=== PATIENT | male | born 1940 | race Caucasian/White ===

== ENCOUNTER 2019-07-30 11:55 | Outpatient (CLI) | payer MEDICARE ==
--- NOTE | 2019-07-30 13:35 | MRI ---
MR the lumbar spine without contrast INDICATION: Lumbar radiculopathy with low back pain and severe weakness in both legs COMPARISON: MR the lumbar spine without contrast dated November 18, 2008 TECHNIQUE: Multiplanar multisequence MR images were obtained of lumbar spine without IV contrast. FINDINGS: Bone marrow: Since the comparison examination there is been interval performance of a posterior later al interbody fusion at L5-S1. Bilateral pars defects are again noted at L5. Grade 1 anterolisthesis is stable appearing. Distal spinal cord and conus: Normal. The conus seen to terminate at L1. 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 There is a 1.4 cm superior right renal cyst. Vertebral levels: L5-S1: There is a broad-based pseudobulge with loss of disc space height and grade 1 anterolisthesis inducing severe bilateral neural foraminal narrowing that is stable to the prior exam.. L4-5: There is a broad-based disc osteophyte complex with facet hypertrophy and loss of disc space he ight inducing moderate to severe left and moderate right neural foraminal narrowing which is stable to the prior exam. L3-4: There is a broad-based disc osteophyte complex with facet hypertrophy inducing mild central can al narrowing with moderate bilateral neural foraminal narrowing. This is stable to the prior exam. L2-3: There is a broad-based disc osteophyte complex with facet hypertrophy inducing mild central can al narrowing and mild bilateral neural foraminal narrowing which is stable to the prior exam. L1-L2: There is a broad-based disc bulge with mild facet osteoarthrosis inducing mild bilateral neura l foraminal narrowing which is slightly more pronounced than seen on the prior exam. T12-L1: There is a broad-based bulge without appreciable central canal or neural foraminal narrowing IMPRESSION: 1. Interval posterior lateral interbody fusion of L5-S1. 2. Stable advanced disc degenerative disease and facet osteoarthrosis in addition to grade 1 anteroli sthesis at L5-S1 induces stable severe bilateral neural foraminal narrowing. 3. Stable moderate to severe left and moderate right neural foraminal narrowing at L4-5. 4. Stable moderate bilateral neural foraminal narrowing and mild central canal narrowing at L3-4. 5. Stable mild central canal narrowing and mild bilateral neural foraminal narrowing at L2-3. 6. Stable mild ectasia infrarenal abdominal aorta measuring 2.9 cm. 1.4 cm superior pole right renal cyst.
== END 2019-07-30 11:56 | disposition home or self-care (01) ==
LOC: BICMRI 11:55
PROVIDERS: ATTEND Internal Medicine
DX: M54.16 Radiculopathy, lumbar region (principal); M51.37 Other intervertebral disc degeneration, lumbosacral region; M43.17 Spondylolisthesis, lumbosacral region; M48.07 Spinal stenosis, lumbosacral region; M48.061 Spinal stenosis, lumbar region without neurogenic claudication; I77.811 Abdominal aortic ectasia; N28.1 Cyst of kidney, acquired; M47.817 Spondylosis without myelopathy or radiculopathy, lumbosacral region; Z98.1 Arthrodesis status
CPT/HCPCS: 72148

== ENCOUNTER 2019-11-23 13:21 | Inpatient (IN) | payer MEDICARE, OTHER ==
[2019-11-23 13:34] LABS: #Eosinphils 0.2 thou/uL (0.0-0.7); #Lymphocytes 1.8 thou/uL (1.20-3.40); #Monocytes 0.5 thou/uL (0.11-0.59); #Neutrophils 3.9 thou/uL (1.40-6.50); %Basophils 0.3 % (0.0-1.0); %Eosinophils 2.4 % (0.0-10.0); %Lymphocytes 28.1 % (21.0-51.0); %Monocytes 8.1 % (0.0-10.0); %Neutrophils 61.1 % (42.0-75.0); Hemoglobin 13.4 g/dL (14.0-18.0); Mean Corpuscular HGB CONC 32.3 g/dL (32.0-36.0); Mean Corpuscular Hemoglobin 30.7 pg (27.0-31.0); Mean Corpuscular Volume 95.2 fL (78.0-98.0); Mean Platelet Volume 9.9 fL (7.4-10.4); Platelet Count 185 thou/uL (130-400); RBC Distribution Width 12.4 % (11.5-14.5); Red Blood Cell (RBC) Count 4.37 mill/uL (4.70-6.10); White Blood Cell (WBC) Count 6.4 thou/uL (4.8-10.8)
[2019-11-23 13:40] LABS: PTT 30.3 SEC (22.9-36.1)
--- NOTE | 2019-11-23 13:40 | CT ---
CT BRAIN NONCONTRAST: DATE: 11/23/2019 HISTORY: 79-year-old male with acute stroke symptoms: Dysarthria and altered mental status, confusion Dr. Marin verbally gave this acute stroke alert protocol report to Dr. Dueñas at 1:38 PM 11/23/2019 FINDINGS: There is no evidence of acute intra-axial or extra-axial hemorrhage. There is no midline shift or any other mass effect. There is no extra-axial fluid collection. There is no evidence of obstructive hydrocephalus. Calvarium is intact. IMPRESSION: No acute intracranial findings.
[2019-11-23 13:47] LABS: ALT (SGPT) 15 U/L (8-55); AST (SGOT) 15 U/L (5-34); Albumin 4.4 g/dL (3.4-4.8); Alkaline Phosphatase 89 U/L (40-110); Anion Gap 14 mmol/L (10-20); BUN (Urea Nitrogen) 18 mg/dL (8.4-25.7); Bilirubin, Total 0.4 mg/dL (0.2-1.2); CK (CPK) 206 U/L (30-200); Calc. Creatinine Clearance 0 mL/min (70-130); Calcium 9.7 mg/dL (7.8-10.44); Carbon Dioxide 28 mmol/L (23-31); Chloride 101 mmol/L (98-107); Estimated GFR-MDRD 51; Globulin 2.9 g/dL (2.4-3.5); Glucose 143 mg/dL (83-110); Potassium 4.1 mmol/L (3.5-5.1); Protein, Total 7.3 g/dL (5.8-8.1); Sodium 139 mmol/L (136-145)
[2019-11-23] MEDS ORDERED: niCARdipine 20MG In NaCl 20 MG/200 ML BAG ONE (13:51)
[2019-11-23] MEDS ORDERED: niCARdipine 25 MG in Sodium Chloride 0.9% 250 ML 240 ML IVPB SCH (14:00)
[2019-11-23 14:20] LABS: Bacteria/HPF None Seen HPF (None Seen); Bilirubin Negative (Negative); Blood, Urine Negative (Negative); Clarity Clear (Clear); Glucose, Urine (Dipstick) Normal (Negative); Leukocyte Negative Leu/uL (Negative); Nitrite Negative (Negative); Protein, Urine (Dipstick) 30 mg/dL (Neg-Trace); RBC/HPF 0-3 HPF (0-3); Squamous Epithelial None Seen HPF (0-3); Urobilinogen Normal mg/dL (Less than 2); WBC/HPF None Seen HPF (0-3)
[2019-11-23] MEDS ORDERED: hydrALAZINE 20 MG/ML VIAL SLOW IVP PRN (15:25)
--- NOTE | 2019-11-23 17:15 | CON ---
NEUROLOGY CONSULTATION DATE OF CONSULTATION: 11/23/2019 HISTORY OF PRESENT ILLNESS: Mr. Mackey is a 79-year-old male with a history significant for hypertension, hyperlipidemia, presented with speech deficit. The history is taken from the daughter. According to the daughter, her mother called her that he was not speaking right and so she went over and spoke to him. He had difficulty getting words out and was somewhat confused. She gave his 650 mg of aspirin and then he felt better and she went to her house. Her mother called her within half an hour that his symptoms are back again and she came to the house and found him to have difficulty talking and his words were not making sense. She called EMS and brought him to the emergency room for further evaluation. Head CT was done, which was negative for acute intracranial pathology. The patient does have difficulty talking, otherwise denies any focal weakness, focal paresthesias , nausea, vomiting, headache, chest pain, or abdominal pain. REVIEW OF SYSTEMS: All 14 systems were reviewed and were negative except for pertinent positives and negatives mentioned in the HPI. PAST MEDICAL HISTORY: Hypertension, hyperlipidemia. PAST SURGICAL HISTORY: Not significant. SOCIAL HISTORY: , lives with his . He is the sole caregiver of the who has cancer. Denies illegal drug use. FAMILY HISTORY: Not significant. PHYSICAL EXAMINATION: 148/70 77 18 CARDIOVASCULAR: Regular rate and rhythm. CHEST: Clear. ABDOMEN: Soft. NEUROLOGIC: Mental status: The patient is alert and oriented to person, place , and time. He does have receptive and expressive aphasia. Cranial nerves 2 through 12 intact. Motor: Muscle tone and bulk are normal. Moving all 4 extremities equally and symmetrically. Reflexes 2+ bilaterally. Sensory: Withdraws to pinprick bilaterally. Cerebellar: Intact. Mild right pronator drift. LABORATORY DATA: I reviewed the CT scan, which was unremarkable. ASSESSMENT AND PLAN: Mr. Maikel Mackey is admitted with speech deficit, most likely cerebrovascular accident since he has risk factors. Recommend MRI of the brain to rule out acute intracranial pathology, 2D echo to rule out cardioembolic source, telemetry to monitor for any arrhythmias, and carotid Dopplers to rule out significant stenosis. Check a fasting lipid panel and hemoglobin A1c and TSH. Start aspirin and statin for secondary stroke prevention. Permissive control of blood pressure at this time. Continue home medications. Continue medical management per primary team. Further recommendation depends on the results of the testing. We will continue to follow. Thank you for the consult. Job ID: [id number] MTDD
[2019-11-23 17:30] VITALS: BMI 23.7
[2019-11-23] MEDS: Acetaminophen 325 MG TAB PO PRN (18:15)
[2019-11-23] MEDS ORDERED: Atorvastatin Calcium 40 MG TAB PO SCH (21:00)
[2019-11-23] MEDS: Sodium Chloride 0.9% 1,000 ML IV SCH (22:06)
--- NOTE | 2019-11-23 22:23 | HP ---
CHIEF COMPLAINT: Aphasia. HISTORY OF PRESENT ILLNESS: The patient is a 79-year-old male with a history of low level hypertension not currently requiring medications, as well as diabetes mellitus, who presented via the emergency department. The patient was at home with his , who unfortunately is suffering from a significant sarcoma. The patient has been taking care of her and has been under a great deal of caregiver stress related to that. The patient's also has some mild dementia. The patient's called their daughter this morning indicating that he appeared confused. She talked to him on the phone. He was very clearly having some difficulties. She went to their house and noted he was having what appeared to be some aphasia and possibly some confusion. She gave him 625 mg of aspirin. He seemed to improve. They wanted to call for an ambulance, but he refused because he did not want to do anything that would remove him from the caregiver role for his . Therefore, the daughter went home to resolve a couple of issues that she thought was causing him some additional anxiety and while she was gone, his symptoms recurred and subsequently they called EMS to bring the patient to the hospital. Since he has been here, the patient's daughter reports that he has actually been getting slightly worse at times. The patient did not have a clear onset of symptoms or last known normal given the patient's 's underlying dementia symptoms, and based on the 10 o'clock timeframe, he was just outside the window for tPA, therefore that was not subsequently administered. The patient did have significant elevations of his blood pressure in the ER and was started on some Cardene. Subsequently, his blood pressure has come down what appears to be too much and that has now been discontinued. REVIEW OF SYSTEMS: Cannot be fully obtained given the patient's aphasia and his 's dementia and she is not present as well. PAST MEDICAL HISTORY: Notable for hyperlipidemia, diabetes mellitus, history of AAA, which the daughter believes is only about 3.5 cm. 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 Has significant diabetic related peripheral neuropathy and he generally walks with a cane or a walker. PAST SURGICAL HISTORY: SVT ablation, vasectomy, appendectomy. FAMILY HISTORY: Father of an NE in his early 60s. Mother lived into her 80s. SOCIAL HISTORY: The patient is a nonsmoker, nondrinker, and nondrug user. He is . Still lives with his . Again, he is the primary caregiver to his who is battling sarcoma. He is full code and his daughter would be his surrogate decision maker at this point should that become necessary. CURRENT MEDICATIONS: 1. Aspirin 81 mg daily. 2. Metformin 500 mg b.i.d. 3. Gabapentin 100 mg t.i.d. 4. Simvastatin 20 mg at bedtime. 5. Losartan/hydrochlorothiazide 100/25 one p.o. daily. 6. Centrum Silver 1 p.o. daily. PHYSICAL EXAMINATION: VITAL SIGNS: BP 171/89, numbers initially were 210/124. Subsequently came down to 102 systolic while I was in the room as the Cardene had been turned off, pulse is 83, respirations 18, temperature 98.1, O2 saturation 97% on room air. GENERAL APPEARANCE: Age-appropriate male, no distress. He is awake, alert, pleasant, calm, no distress. HEENT: PERRL. He has no acute lesions. Dentures in place. NECK: Supple and symmetric. There are no carotid bruits. HEART: Regular rate and rhythm without murmurs, gallops, or rubs. LUNGS: Clear to auscultation bilaterally. Good chest wall expansion and air exchange. ABDOMEN: Soft, nontender, and nondistended. Positive bowel sounds. No masses. No organomegaly. EXTREMITIES: No cyanosis, clubbing, or edema. NEUROLOGIC: The patient does have some expressive aphasia. He is able to follow my commands, although apparently there had been times in the ER when he was not able to do so. He cannot recall his daughter's name, does not know place. He is oriented to person. 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 LABORATORY DATA: White count 6.4, hemoglobin 13.4, platelets 185. INR 1.0, PTT 30.3. Sodium 139, potassium 4.1, chloride 101, CO2 of 28, BUN 18, creatinine is 1.35, glucose 143, calcium 9.7, AST 15, ALT 15, CK 206, troponin 0.012. Albumin 4.4. Urinalysis is negative. CT of the brain negative. IMPRESSION AND PLAN: 1. Acute cerebrovascular accident manifest as expressive aphasia and possibly some intermittent receptive aphasia as well. The patient will be admitted to the hospital. We will consult Neurology, PT, OT, Speech Therapy. I anticipate echocardiogram, carotid Dopplers and an MRI of the brain. We will continue with statin high dose and with daily aspirin at 325 mg for now. 2. Diabetes mellitus. Continue with Accu-Cheks and sliding scale for now until we are sure the patient is able to take adequate p.o. and may be able to convert back to the metformin. 3. Hypertension. I am actually unclear now if the patient is taking blood pressure medications routinely or not. We will try to reach out to his PCP to confirm. The daughter indicated that he had taken them in the past, but was unsure that he was continuing with them now. 4. Diabetic neuropathy. Again, we will resume gabapentin. The patient is capable of taking p.o. at some point. Job ID: [id number]
[2019-11-23] MEDS ORDERED: Dextrose 50% Abboject 50 ML SYRINGE SLOW IVP PRN (22:57)
[2019-11-23] MEDS ORDERED: Dextrose 5% in Water 1,000 ML IV PRN (22:57)
[2019-11-23] MEDS ORDERED: HumaLOG 300 UNITS/3 ML VIAL SC PRN ×2 (22:57)
[2019-11-24] MEDS: Acetaminophen 325 MG TAB PO PRN ×2 (04:31→08:54)
--- NOTE | 2019-11-24 06:55 | ULT ---
CAROTID ULTRASOUND: HISTORY: CVA. COMPARISON: None. TECHNIQUE: Multiplanar voss-scale and color Doppler images were obtained in a carotid ultrasound. Spectral meghan sis of the Doppler wave-forms was performed. FINDINGS: No significant plaque is seen in either common or internal carotid artery. The Doppler wave-forms are normal bilaterally. The peak systolic velocity in the right ICA is 67 cm per second. The peak systolic velocity in the right CCA is 83 cm per second. The right ICA/CCA ratio is 0.8. The peak systolic velocity in the left ICA is 47 cm per second. The peak systolic velocity in the left CCA is 90 cm per second. The left ICA/CCA ratio is 0.5 Both vertebral arteries demonstrate antegrade flow without evidence of stenosis. IMPRESSION: No evidence of hemodialysis significant stenosis. POS: EAA
[2019-11-24] MEDS ORDERED: Tamsulosin HCl 0.4 MG CAP PO SCH (09:00)
[2019-11-24] MEDS ORDERED: Amlodipine 10 MG TAB PO SCH (09:00)
[2019-11-24] MEDS ORDERED: Aspirin 325 mg Enteric Coated Tablet PO SCH (09:00)
[2019-11-24] MEDS ORDERED: Enoxaparin Sodium 40 MG/0.4 ML SYRINGE SC SCH (09:00)
[2019-11-24] MEDS ORDERED: Metoprolol Tartrate 25 MG TAB PO SCH (09:00)
[2019-11-24] MEDS ORDERED: Lorazepam 2 MG/ML VIAL SLOW IVP PRN (09:40)
--- NOTE | 2019-11-24 11:06 | PDOC.HOSPP ---
- Subjective Encounter Date: 11/24/19 Encounter Time: 09:15 Subjective: mild aphasia but speaks mostly well no weakness in extremities no choking while eating - Objective Vital Signs & Weight: Vital Signs (12 hours) Temp Pulse Resp BP Pulse Ox 11/24/19 08:53 70 11/24/19 08:00 98.5 F 70 16 205/79 H 92 L 11/24/19 04:00 98.6 F 63 16 187/98 H 93 L 11/24/19 00:00 98.2 F 71 18 174/82 H 93 L Weight Weight 195 lb I&O: 11/23/19 11/24/19 11/25/19 06:59 06:59 06:59 Intake Total 360 750 Output Total 500 200 Balance -140 550 Result Diagrams: 11/23/19 13:24 11/23/19 13:24 Additional Labs: Accuchecks 11/24/19 11/23/19 11/23/19 05:22 19:42 13:31 POC Glucose 129 H 155 H 131 H Hospitalist ROS - Medication Medications: Active Medications Generic Name Dose Route Start Last Admin Trade Name Freq PRN Reason Stop Dose Admin Acetaminophen 650 mg 11/23/19 18:04 11/24/19 08:54 Tylenol PO 650 mg Q6H PRN Administration Pain Amlodipine Besylate 10 mg 11/24/19 09:00 11/24/19 08:53 Norvasc PO 10 mg DAILY ALIN Administration Aspirin 325 mg 11/24/19 09:00 11/24/19 08:53 Ecotrin PO 325 mg DAILY ALIN Administration Atorvastatin Calcium 40 mg 11/23/19 21:00 11/23/19 21:12 Lipitor PO 40 mg HS ALIN Administration Enoxaparin Sodium 40 mg 11/24/19 09:00 11/24/19 08:54 Lovenox SC 40 mg 0900 ALIN Administration Sodium Chloride 1,000 mls @ 50 mls/hr 11/23/19 15:30 11/23/19 22:06 Normal Saline 0.9% IV 1,000 mls .Q20H ALIN Administration Metoprolol Tartrate 25 mg 11/24/19 09:00 11/24/19 08:53 Lopressor PO 25 mg BID ALIN Administration Sodium Chloride 10 ml 11/23/19 15:25 11/23/19 21:12 Flush - Normal Saline IVF 10 ml PRN PRN Administration Saline Flush Tamsulosin HCl 0.4 mg 11/24/19 09:00 11/24/19 08:54 Flomax PO 0.4 mg DAILY ALIN Administration - Exam General Appearance: NAD, awake alert Eye: PERRL, anicteric sclera ENT: no oropharyngeal lesions, moist mucosa Neck: supple, no JVD Heart: RRR, no murmur Respiratory: no wheezes, no rales Gastrointestinal: soft, non-tender, non-distended, normal bowel sounds Extremities: no cyanosis, no edema Neurological: cranial nerve grossly intact, no focal deficits Psychiatric: normal affect, A&O x 3 Hosp A/P (1) Acute CVA (cerebrovascular accident) Code(s): I63.9 - CEREBRAL INFARCTION, UNSPECIFIED Status: Acute (2) Aphasia Code(s): R47.01 - APHASIA Status: Acute (3) HTN (hypertension) Code(s): I10 - ESSENTIAL (PRIMARY) HYPERTENSION Status: Chronic Qualifiers: Hypertension type: essential hypertension Qualified Code(s): I10 - Essential (primary) hypertension (4) DM type 2 (diabetes mellitus, type 2) Status: Chronic Qualifiers: Diabetes mellitus roasterman insulin use: without roasterman use Diabetes mellitus complication status: without complication Qualified Code(s): E11.9 - Type 2 diabetes mellitus without complications - Plan clinically no motor deficits in extremities, has mild aphasia await MRI brain, is oriented this morning, echo pending has cleared speech eval to ambulate with PT claustrophobic for MRI, will give ativan if needed htn uncontrolled, low dose lopressor, norvasc, asp, lipitor
[2019-11-24 11:27] VITALS: TEMP 97.7
--- NOTE | 2019-11-24 12:11 | MRI ---
EXAM: MRI Brain WO Con PROVIDED CLINICAL HISTORY: Generalized weakness. Patient admitted one day ago with confusion and a aphasia. COMPARISON: Noncontrast CT head on 11/23/2019 FINDINGS: There are scattered punctate and patchy areas of increased FLAIR and T2-weighted signal intensity in the periventricular and subcortical white matter which are nonspecific but likely reflective of mild chronic small vessel ischemic changes. There is questionable punctate area of restricted diffusi on in the most superior stephon just to the right of midline which may represent a tiny acute to subacute lacunar infarction. No other areas of restricted diffusion are seen to suggest additional ac kelley infarction. The septum pellucidum and third ventricle are in the midline. Mild cerebral and cerebellar volume los s is present. Appropriate flow voids are demonstrated in the large intracranial vessels at the base of the brain. The orbits, paranasal sinuses, and skull base demonstrate a normal MRI appearance. IMPRESSION: Question of a punctate acute to subacute infarction in the superior aspect of the stephon.
[2019-11-24 13:50] VITALS: BP 190/90
[2019-11-24] MEDS: Sodium Chloride 0.9% 1,000 ML IV SCH (15:38)
--- NOTE | 2019-11-24 19:03 | DIS ---
DATE OF ADMISSION: 11/23/2019 DATE OF DISCHARGE: 11/24/2019 DISCHARGE DISPOSITION: To home. 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 Aphasia resolved. SECONDARY DISCHARGE DIAGNOSES: Hypertension, hypertensive urgency, diabetes mellitus type 2. PROCEDURES DONE DURING HOSPITALIZATION: MRI brain without contrast done showed punctate acute to subacute infarct in the superior aspect of stephon. Echo with 2D Doppler done was technically inadequate. Carotid Doppler done showed no hemodynamically significant stenosis. H and H 13 and 41. Platelet count 185. Total cholesterol 135, triglyceride 69, LDL 76, HDL 45. BUN and creatinine of 18 and 1.3. DISCHARGE MEDICATIONS: Aspirin 81 mg p.o. daily, gabapentin 600 mg p.o. 3 times daily, Flomax 0.4 mg p.o. daily, Norvasc 10 mg daily, lisinopril 10 mg daily, atorvastatin 40 mg p.o. at bedtime. ALLERGIES: NO KNOWN DRUG ALLERGIES. DISCHARGE PLAN: The patient is to follow up with Dr. Stark in 1 week, Dr. Heredia in 2 to 3 weeks. BRIEF COURSE DURING HOSPITALIZATION: The patient initially was brought to emergency room for confusion and aphasia. He also had hypertensive urgency on arrival. He has had a complete stroke workup done. The patient has uncontrolled hypertension at the time of discharge, but he is adamant on going home. He was educated to check the blood pressure and pulse measurements twice daily and record for a period of 10 days to follow up with Dr. Stark, which he promises to do on . I have spoken to his daughter about the patient's adamance about going home today even though his blood pressures are high. The daughter will stay with him for 2 to 3 days and closely monitor him. He was placed on Norvasc and lisinopril. The patient has a baseline creatinine likely of 1.3 and needs close monitoring of his creatinine in view of JAKE inhibitor. He has known history of diabetes and is on diet control, hence JAKE inhibitor was placed. His aphasia and confusion have resolved. He has ambulated in the room. Due to the patient's uncontrolled hypertension, PT has not ambulated him in the hallway, but he has done well inside the room. He is cleared for oral solid intake by Speech Therapy. Please note, I have seen and examined the patient on the day of discharge. Job ID: [id number]
--- NOTE | 2019-11-28 16:09 | EKG ---
Test Reason : Blood Pressure : / mmHG Vent. Rate : 075 BPM Atrial Rate : 075 BPM P-R Int : 220 ms QRS Dur : 090 ms QT Int : 420 ms P-R-T Axes : 096 067 084 degrees QTc Int : 469 ms Poor data quality, interpretation may be adversely affected Sinus rhythm with 1st degree A-V block with Premature atrial complexes Otherwise normal ECG Confirmed by GABI GABRIEL DO ([id number]), editor & co founder ALECIA GRAVES ([id number]) on 11/28/2019 4:09:03 PM Referred By: Confirmed By:GABI GABRIEL DO
== END 2019-11-24 16:55 | disposition home or self-care (01) | DRG 65 ==
LOC: ERS 13:21 → EDBD 13:21 → MERGE 14:44 → 2SE 14:44
PROVIDERS: ADMIT Internal Medicine; ATTEND Internal Medicine
DX: I63.89 Other cerebral infarction (principal); I16.1 Hypertensive emergency; I16.0 Hypertensive urgency; E78.5 Hyperlipidemia, unspecified; E78.00 Pure hypercholesterolemia, unspecified; R29.707 NIHSS score 7; R40.2362 Coma scale, best motor response, obeys commands, at arrival to emergency department; R40.2142 Coma scale, eyes open, spontaneous, at arrival to emergency department; R40.2242 Coma scale, best verbal response, confused conversation, at arrival to emergency department; R47.01 Aphasia; I10 Essential (primary) hypertension; E11.42 Type 2 diabetes mellitus with diabetic polyneuropathy; Z90.49 Acquired absence of other specified parts of digestive tract; Z98.52 Vasectomy status; Z79.82 Long term (current) use of aspirin; Z79.899 Other long term (current) drug therapy; Z79.84 Long term (current) use of oral hypoglycemic drugs
CPT/HCPCS: 36415; 36416; 70450; 70551; 80053; 80061; 81003; 81015; 82550; 84484; 85025; 85610; 85730; 93005; 93306; 93880; 94760; 96365; J1650; J2060; J7050

== ENCOUNTER 2021-06-12 12:35 | Outpatient (CLI) | payer MEDICARE | END 2021-06-12 12:36 | disposition home or self-care (01) | LOC: TBSIIMAG 12:35 | PROVIDERS: ATTEND Neurological Surgery | DX: G62.9 Polyneuropathy, unspecified (principal); M47.814 Spondylosis without myelopathy or radiculopathy, thoracic region; M51.34 Other intervertebral disc degeneration, thoracic region; M48.04 Spinal stenosis, thoracic region; M48.03 Spinal stenosis, cervicothoracic region; M47.812 Spondylosis without myelopathy or radiculopathy, cervical region | CPT/HCPCS: 72141; 72146 ==

== ENCOUNTER 2022-06-11 05:56 | Day surgery (SDC) | payer MEDICARE ==
[2022-06-10 11:29] VITALS: BMI 25.3
[~2022-06-11 05:56] MED LIST: Iopamidol 370 76% 100 ML VIAL ONE
[2022-06-11] MEDS ORDERED: Verapamil 5 MG/2 ML VIAL ONE (06:02)
[2022-06-11] MEDS ORDERED: Heparin 10,000 UNITS/ 10 ML VIAL ONE (06:02)
[2022-06-11] MEDS ORDERED: Nitroglycerin 100MG/250ML BOT 0 ML ONE (06:02)
[2022-06-11] MEDS ORDERED: Lidocaine 1% (PF) 30 ML VIAL ONE (06:02)
[2022-06-11] MEDS ORDERED: Adenosine 6 MG/2 ML VIAL ONE (06:02)
[2022-06-11] MEDS ORDERED: Midazolam HCl 2 mg/2 ml Vial ONE (06:42)
[2022-06-11] MEDS ORDERED: FENTANYL 50 MCG/ML 1 ML VIAL ONE (06:42)
[2022-06-11] MEDS ORDERED: Protamine Sulfate 50 MG/5 ML VIAL ONE (07:29)
[2022-06-11] MEDS ORDERED: hydrALAZINE 25 MG TAB ONE ×2 (13:31)
[2022-06-11] MEDS ORDERED: Gabapentin 300 MG CAP ONE (13:43)
[2022-06-11] MEDS ORDERED: Gabapentin 300 MG CAP PO SCH (13:45)
[2022-06-11] MEDS ORDERED: hydrALAZINE 25 MG TAB PO SCH (13:45)
== END 2022-06-11 15:00 | disposition home or self-care (01) ==
LOC: CCL 05:56
PROVIDERS: ATTEND Internal Medicine Cardiovascular Disease
PROC: 4A023N7 Measurement of Cardiac Sampling and Pressure, Left Heart, Percutaneous Approach (ICD-10-PCS; principal; 2022-06-11)
PROC: B2111ZZ Fluoroscopy of Multiple Coronary Arteries using Low Osmolar Contrast (ICD-10-PCS; 2022-06-11)
DX: R94.39 Abnormal result of other cardiovascular function study (principal); I25.10 Atherosclerotic heart disease of native coronary artery without angina pectoris; I42.8 Other cardiomyopathies; E78.00 Pure hypercholesterolemia, unspecified; I49.5 Sick sinus syndrome; I48.0 Paroxysmal atrial fibrillation; I47.1 Supraventricular tachycardia; G25.0 Essential tremor; I71.40 Abdominal aortic aneurysm, without rupture, unspecified; E03.9 Hypothyroidism, unspecified; I12.9 Hypertensive chronic kidney disease with stage 1 through stage 4 chronic kidney disease, or unspecified chronic kidney disease; E11.22 Type 2 diabetes mellitus with diabetic chronic kidney disease; N18.32 Chronic kidney disease, stage 3b; Z86.73 Personal history of transient ischemic attack (TIA), and cerebral infarction without residual deficits; Z87.891 Personal history of nicotine dependence; Z79.01 Long term (current) use of anticoagulants; Z79.82 Long term (current) use of aspirin; Z79.84 Long term (current) use of oral hypoglycemic drugs; Z79.890 Hormone replacement therapy; Z79.899 Other long term (current) drug therapy
CPT/HCPCS: 85347; 93454; 99152; 99153; C1769; J0153; J1644; J2001; J2250; J2720; J3010

== ENCOUNTER 2022-10-28 21:39 | Emergency (ER) | payer MEDICARE ==
[2022-10-28 23:23] LABS: #Lymphocytes 1.1 thou/uL (1.20-3.40); #Monocytes 0.6 thou/uL (0.11-0.59); #Neutrophils 5.8 thou/uL (1.40-6.50); %Eosinophils 0.1 % (0.0-10.0); %Lymphocytes 14.3 % (21.0-51.0); %Monocytes 8.4 % (0.0-10.0); %Neutrophils 77.2 % (42.0-75.0); Hemoglobin 11.4 g/dL (14.0-18.0); Mean Corpuscular HGB CONC 32.4 g/dL (32.0-36.0); Mean Corpuscular Hemoglobin 30.6 pg (27.0-31.0); Mean Corpuscular Volume 94.5 fl (78.0-98.0); Mean Platelet Volume 8.7 fL (7.4-10.4); Platelet Count 206 10x3/uL (130-400); RBC Distribution Width 13.8 % (11.5-14.5); Red Blood Cell (RBC) Count 3.71 mill/uL (4.70-6.10); White Blood Cell (WBC) Count 7.5 10x3/uL (4.8-10.8)
[2022-10-28 23:51] LABS: ALT (SGPT) 16 U/L (8-55); AST (SGOT) 13 U/L (5-34); Albumin 4.1 g/dL (3.4-4.8); Alkaline Phosphatase 102 U/L (40-110); Anion Gap 15 mmol/L (10-20); BUN (Urea Nitrogen) 40 mg/dL (8.4-25.7); Bilirubin, Total 0.2 mg/dL (0.2-1.2); Calc. Creatinine Clearance 0 mL/min (70-130); Calcium 9.2 mg/dL (7.8-10.44); Carbon Dioxide 26 mmol/L (23-31); Chloride 103 mmol/L (98-107); Estimated GFR 27; Globulin 3.2 g/dL (2.4-3.5); Glucose 250 mg/dL (83-110); Potassium 4.5 mmol/L (3.5-5.1); Protein, Total 7.3 g/dL (5.8-8.1); Sodium 139 mmol/L (136-145)
== END 2022-10-29 02:02 | disposition home or self-care (01) ==
LOC: ERS 21:39
DX: R60.0 Localized edema (principal); I10 Essential (primary) hypertension; R06.02 Shortness of breath; E11.9 Type 2 diabetes mellitus without complications
CPT/HCPCS: 36415; 71045; 80053; 83880; 84484; 85025; 85379; 93005; 93970; 94760